=== PATIENT | male | born 1995 | race Caucasian/White ===

== ENCOUNTER 2016-08-07 12:34 | Emergency (ER) | payer MEDICAID, OTHER, SELFPAY ==
[~2016-08-07] VITALS: Ht 182.9 cm; Wt 99.8 kg
[2016-08-07] MEDS ORDERED: ONDANSETRON 4MG/2ML VIAL (J2405) IV ONE ×2 (13:15→13:30)
[2016-08-07] MEDS ORDERED: NS 1,000 ML IV ONE (13:15)
[2016-08-07] MEDS ORDERED: MECLIZINE 25 MG TABLET PO ONE (13:30)
[2016-08-07 13:45] LABS: BASO % 0.6 % (0.0-1.0); EOS % 0.6 % (0.0-3.0); LARGE UNSTAINED CELL # 0.2 K/mm3 (0.0-0.4); LYMPH # 2.1 K/mm3 (1.5-6.5); LYMPH % 22.6 % (24.0-44.0); MEAN CORPUSCULAR HEMOGLOBIN 30.4 pg (27.0-33.0); MEAN CORPUSCULAR HGB CONC 34.6 g/dl (32.0-36.5); MEAN CORPUSCULAR VOLUME 87.9 fl (80.0-96.0); MONO # 0.3 K/mm3 (0.0-0.8); MONO % 3.3 % (0.0-5.0); NEUTROPHILS % 70.9 % (36.0-66.0); PLATELET COUNT, AUTOMATED 263 k/mm3 (150-450); RED CELL DISTRIBUTION WIDTH 12.9 % (11.5-14.5); WHITE BLOOD COUNT 8.4 K/mm3 (4.0-10.0)
[2016-08-07 13:46] LABS: ALBUMIN 4.2 GM/DL (3.2-5.2); ALKALINE PHOSPHATASE 92 U/L (45-117); ALT/SGPT 80 U/L (12-78); ANION GAP 12 MEQ/L (8-16); AST/SGOT 34 U/L (15-37); BILIRUBIN,DIRECT < 0.1 MG/DL (0.0-0.2); BILIRUBIN,TOTAL 0.5 MG/DL (0.2-1.0); BLOOD UREA NITROGEN 10 MG/DL (7-18); CALCIUM LEVEL 8.9 MG/DL (8.5-10.1); CARBON DIOXIDE LEVEL 22 MEQ/L (21-32); CHLORIDE LEVEL 107 MEQ/L (98-107); GLOMERULAR FILTRATION RATE > 60.0 (>60); GLUCOSE, FASTING 182 MG/DL (70-105); POTASSIUM SERUM 3.2 MEQ/L (3.5-5.1); SODIUM LEVEL 141 MEQ/L (136-145); TOTAL PROTEIN 7.7 GM/DL (6.4-8.2)
--- NOTE | 2016-08-07 14:01 | REP ---
CT Head without contrast HISTORY: Vertigo COMPARISON: None There is no intraparenchymal hemorrhage, acute infarct, mass or midline shift. The ventricular system is normal in appearance. There is no extra cerebral collection. There is no fracture. The visualized sinuses are clear. IMPRESSION: There is no intracranial lesion. Signed by Pino Mckeon MD 08/07/2016 01:53 P
[2016-08-07 15:36] LABS: METHADONE URINE NEGATIVE (NEGATIVE)
[2016-08-07] MEDS ORDERED: MECL-86 PO (15:42)
[2016-08-07] MEDS ORDERED: ZOFR4TAB3 PO (15:42)
[2016-08-07 15:46] VITALS: BP 123/74
== END 2016-08-07 16:08 | disposition home or self-care (01) ==
LOC: M ED 14:03
DX: H81.13 Benign paroxysmal vertigo, bilateral (principal); H83.03 Labyrinthitis, bilateral; Z79.899 Other long term (current) drug therapy; Z91.012 Allergy to eggs; F17.210 Nicotine dependence, cigarettes, uncomplicated

== ENCOUNTER → 2018-05-30 | Outpatient (REF) | payer OTHER ==
[~2018-05-30] MED LIST: MECL-86 PO; ZOFR4TAB14 PO
[2018-05-30 14:28] LABS: INFLUENZA A AMPLIFICATION NEGATIVE (NEGATIVE); INFLUENZA B AMPLIFICATION NEGATIVE (NEGATIVE)
== END ==
LOC: M LAB REF 13:30
PROVIDERS: ATTEND Physician Assistant
DX: J11.1 Influenza due to unidentified influenza virus with other respiratory manifestations (principal); J02.9 Acute pharyngitis, unspecified

== ENCOUNTER 2018-06-24 01:16 | Emergency (ER) | payer OTHER ==
[~2018-06-24] VITALS: Ht 177.8 cm; Wt 86.4 kg
[2018-06-24 02:58] LABS: HEMATOCRIT 44.8 % (42.0-52.0); HEMOGLOBIN 16.1 g/dl (13.5-17.5); MEAN CORPUSCULAR HEMOGLOBIN 31.3 pg (27.0-33.0); MEAN CORPUSCULAR HGB CONC 35.9 g/dl (32.0-36.5); MEAN CORPUSCULAR VOLUME 87.2 fl (80.0-96.0); PLATELET COUNT, AUTOMATED 236 10^3/uL (150-450); RED BLOOD COUNT 5.14 10^6/uL (4.30-6.10); WHITE BLOOD COUNT 5.6 10^3/uL (4.0-10.0)
[2018-06-24 03:19] LABS: ACETAMINOPHEN LEVEL < 2.0 UG/ML (10.0-30.0); ALBUMIN 4.4 GM/DL (3.2-5.2); ALT/SGPT 52 U/L (12-78); BILIRUBIN,DIRECT 0.2 MG/DL (0.0-0.2); BILIRUBIN,TOTAL 1.2 MG/DL (0.2-1.0); BLOOD UREA NITROGEN 12 MG/DL (7-18); CALCIUM LEVEL 8.9 MG/DL (8.5-10.1); CARBON DIOXIDE LEVEL 26 MEQ/L (21-32); CHLORIDE LEVEL 108 MEQ/L (98-107); CREATININE FOR GFR 0.86 MG/DL (0.70-1.30); ETHYL ALCOHOL (ETHANOL) < 0.003 % (0.000-0.010); GLOMERULAR FILTRATION RATE > 60.0 (>60); GLUCOSE, FASTING 81 MG/DL (70-100); SALICYLATE LEVEL < 1.7 MG/DL (5.0-30.0); SODIUM LEVEL 140 MEQ/L (136-145); THYROID STIMULATING HORMONE 0.453 uIU/ML (0.358-3.740); TOTAL PROTEIN 7.6 GM/DL (6.4-8.2)
[2018-06-24] MEDS ORDERED: LORazepam 1 MG TAB PO ONE (04:15)
[2018-06-24 04:47] VITALS: BP 123/70
== END 2018-06-24 04:49 | disposition home or self-care (01) ==
LOC: M ED 01:16
DX: F32.9 Major depressive disorder, single episode, unspecified (principal); Z91.5 Personal history of self-harm; F17.290 Nicotine dependence, other tobacco product, uncomplicated; Z91.012 Allergy to eggs
CPT/HCPCS: 80048; 80076; 84443; 85027; 99284; G0480

== ENCOUNTER 2018-07-06 20:00 | Emergency (ER) | payer MEDICAID, OTHER ==
[~2018-07-06] VITALS: Ht 182.9 cm; Wt 90.9 kg
[2018-07-06] MEDS ORDERED: METOCLOPRAMIDE 10 MG TAB PO ONE (20:30)
[2018-07-06] MEDS ORDERED: diphenhydrAMINE 50 MG CAP PO ONE (20:30)
[2018-07-06] MEDS: KETOROLAC 30 MG/ML VIAL (J1885) IM ONE ×2 (20:41→20:43)
[2018-07-06] MEDS ORDERED: ALBUTEROL SULFATE 2.5 MG/0.5 ML INH NEB SOLN NEB ONE (20:45)
[2018-07-06] MEDS ORDERED: IBUPROFEN 800 MG TAB PO ONE (21:00)
[2018-07-06] MEDS ORDERED: PROAAER10 INH (21:35)
[2018-07-06 21:49] VITALS: BP 109/73
== END 2018-07-06 21:55 | disposition home or self-care (01) ==
LOC: M ED 20:00
DX: G44.209 Tension-type headache, unspecified, not intractable (principal); F90.9 Attention-deficit hyperactivity disorder, unspecified type; Z77.098 Contact with and (suspected) exposure to other hazardous, chiefly nonmedicinal, chemicals; Z91.012 Allergy to eggs

== ENCOUNTER → 2018-07-18 | Outpatient (REF) | payer OTHER, MEDICAID ==
[~2018-07-18] MED LIST changes: +PROAAER10 INH
[2018-07-18 16:56] LABS: INFLUENZA A AMPLIFICATION NEGATIVE (NEGATIVE); INFLUENZA B AMPLIFICATION NEGATIVE (NEGATIVE)
== END ==
LOC: M LAB REF 14:38
PROVIDERS: ATTEND Physician Assistant
DX: J11.1 Influenza due to unidentified influenza virus with other respiratory manifestations (principal)

== ENCOUNTER 2018-07-29 01:32 | Emergency (ER) | payer MEDICAID, OTHER ==
[~2018-07-29] VITALS: Ht 182.9 cm; Wt 89.5 kg
[2018-07-29 01:33] VITALS: BP 130/96
== END 2018-07-29 04:17 | disposition left against medical advice (07) ==
LOC: M ED 01:32 → EDBD 01:32 → M ED 04:17
DX: Z53.21 Procedure and treatment not carried out due to patient leaving prior to being seen by health care provider (principal)

== ENCOUNTER 2018-08-29 11:03 | Emergency (ER) | payer OTHER ==
[~2018-08-29] VITALS: Ht 182.9 cm; Wt 90.0 kg
[2018-08-29] MEDS ORDERED: NS 1,000 ML IV ONE (11:30)
[2018-08-29] MEDS ORDERED: METOCLOPRAMIDE INJ 10MG/2ML VIAL (J2765) IV ONE (11:30)
[2018-08-29] MEDS ORDERED: KETOROLAC 30 MG/ML VIAL (J1885) IV ONE (11:30)
[2018-08-29 11:36] LABS: BASO % 0.6 % (0.0-1.0); EOS # 0.2 10^3/uL (0.0-0.50); EOS % 3.7 % (0.0-3.0); HEMATOCRIT 43.7 % (42.0-52.0); HEMOGLOBIN 15.9 g/dl (13.5-17.5); LYMPH % 31.6 % (24.0-44.0); MEAN CORPUSCULAR HEMOGLOBIN 31.9 pg (27.0-33.0); MEAN CORPUSCULAR HGB CONC 36.4 g/dl (32.0-36.5); MEAN CORPUSCULAR VOLUME 87.6 fl (80.0-96.0); MONO # 0.4 10^3/uL (0.0-0.8); MONO % 6.3 % (0.0-5.0); NEUTROPHILS # 3.5 10^3/uL (1.8-7.7); NEUTROPHILS % 57.5 % (36.0-66.0); PLATELET COUNT, AUTOMATED 216 10^3/uL (150-450); RED BLOOD COUNT 4.99 10^6/uL (4.30-6.10); WHITE BLOOD COUNT 6.2 10^3/uL (4.0-10.0)
[2018-08-29] MEDS ORDERED: KETO10TAB PO (12:06)
[2018-08-29] MEDS ORDERED: REGL10TA6 PO (12:07)
--- NOTE | 2018-08-29 12:07 | REP ---
Clinical: Right flank pain. Technique: Axial noncontrast images from the lung bases to the pubic symphysis with coronal and sagittal re-formations. Findings: Mild right-sided hydronephrosis and proximal hydroureter with subtle periureteral stranding secondary to a 1.5 mm calculus in the midureter (image 82). Remainder of the urinary tract system is unremarkable. Liver, spleen, pancreas, gallbladder, bilateral adrenal glands are normal. The enteric system is without obstruction or acute inflammatory process. Normal terminal ileum and appendix identified in the right lower quadrant. Pelvis demonstrates normal bladder and age-appropriate prostate/seminal vesicles. No ascites. No free air. No adenopathy. Musculoskeletal structures are intact. Lung bases are clear. Impression: Mild acute right-sided obstructive uropathy with a 1.5 mm calculus in the mid-right ureter. Electronically Signed by Duke Little MD 08/29/2018 11:58 A
[2018-08-29 12:10] LABS: ALBUMIN 3.8 GM/DL (3.2-5.2); ALT/SGPT 51 U/L (12-78); BILIRUBIN,DIRECT 0.1 MG/DL (0.0-0.2); BILIRUBIN,TOTAL 0.7 MG/DL (0.2-1.0); BLOOD UREA NITROGEN 16 MG/DL (7-18); CALCIUM LEVEL 8.7 MG/DL (8.5-10.1); CARBON DIOXIDE LEVEL 21 MEQ/L (21-32); CHLORIDE LEVEL 110 MEQ/L (98-107); CREATININE FOR GFR 0.78 MG/DL (0.70-1.30); GLOMERULAR FILTRATION RATE > 60.0 (>60); GLUCOSE, FASTING 135 MG/DL (70-100); LIPASE 98 U/L (73-393); POTASSIUM SERUM 3.7 MEQ/L (3.5-5.1); SODIUM LEVEL 140 MEQ/L (136-145); TOTAL PROTEIN 7.2 GM/DL (6.4-8.2)
[2018-08-29] MEDS ORDERED: CIPR-249 PO (14:30)
[2018-08-29 14:37] VITALS: BP 122/65
== END 2018-08-29 14:38 | disposition home or self-care (01) ==
LOC: M ED 11:03
DX: N20.1 Calculus of ureter (principal); R11.2 Nausea with vomiting, unspecified; Z91.012 Allergy to eggs
CPT/HCPCS: 74176; 80048; 80076; 81001; 83690; 85025; 93041; 96361; 96374; 96375; 99285; J1885; J2765

== ENCOUNTER → 2018-09-02 | Outpatient (REF) | payer OTHER ==
[~2018-09-02] MED LIST changes: +CIPR-249 PO; +KETO10TAB PO; +REGL10TA6 PO
== END ==
LOC: M WUC 12:21
PROVIDERS: ATTEND Physician Assistant
DX: M54.9 Dorsalgia, unspecified (principal)

== ENCOUNTER 2018-09-19 22:46 | Emergency (ER) | payer OTHER ==
[~2018-09-19] VITALS: Ht 180.3 cm; Wt 80.9 kg
[2018-09-20 00:22] VITALS: BP 124/88
[2018-09-21] MEDS ORDERED: FLOM0.4C39 PO (16:42)
== END 2018-09-20 00:34 | disposition home or self-care (01) ==
LOC: M ED 22:46
DX: F41.8 Other specified anxiety disorders (principal); F43.10 Post-traumatic stress disorder, unspecified; Z79.899 Other long term (current) drug therapy; Z91.012 Allergy to eggs; F17.210 Nicotine dependence, cigarettes, uncomplicated

== ENCOUNTER 2018-09-21 12:40 | Inpatient (IN) | payer MEDICAID, OTHER ==
[~2018-09-21] VITALS: Ht 180.3 cm; Wt 88.6 kg
[2018-09-21 13:32] LABS: HEMATOCRIT 45.8 % (42.0-52.0); HEMOGLOBIN 16.6 g/dl (13.5-17.5); MEAN CORPUSCULAR HEMOGLOBIN 31.6 pg (27.0-33.0); MEAN CORPUSCULAR HGB CONC 36.2 g/dl (32.0-36.5); MEAN CORPUSCULAR VOLUME 87.2 fl (80.0-96.0); PLATELET COUNT, AUTOMATED 228 10^3/uL (150-450); RED BLOOD COUNT 5.25 10^6/uL (4.30-6.10); WHITE BLOOD COUNT 7.9 10^3/uL (4.0-10.0)
[2018-09-21 14:20] LABS: ACETAMINOPHEN LEVEL < 2.0 UG/ML (10.0-30.0); ALBUMIN 4.3 GM/DL (3.2-5.2); ALT/SGPT 57 U/L (12-78); BILIRUBIN,DIRECT 0.2 MG/DL (0.0-0.2); BILIRUBIN,TOTAL 0.9 MG/DL (0.2-1.0); BLOOD UREA NITROGEN 11 MG/DL (7-18); CALCIUM LEVEL 9.1 MG/DL (8.5-10.1); CARBON DIOXIDE LEVEL 25 MEQ/L (21-32); CHLORIDE LEVEL 108 MEQ/L (98-107); CREATININE FOR GFR 0.75 MG/DL (0.70-1.30); GLOMERULAR FILTRATION RATE > 60.0 (>60); GLUCOSE, FASTING 96 MG/DL (70-100); POTASSIUM SERUM 4.3 MEQ/L (3.5-5.1); SALICYLATE LEVEL < 1.7 MG/DL (5.0-30.0); SODIUM LEVEL 139 MEQ/L (136-145); TOTAL PROTEIN 7.8 GM/DL (6.4-8.2)
[2018-09-21 14:24] LABS: ETHYL ALCOHOL (ETHANOL) < 0.003 % (0.000-0.010)
[2018-09-21 14:50] LABS: AMPHETAMINES LEVEL URINE NEGATIVE (NEGATIVE); BARBITURATES URINE NEGATIVE (NEGATIVE); BENZODIAZEPINES URINE NEGATIVE (NEGATIVE); CANNABINOIDS URINE NEGATIVE (NEGATIVE); COCAINE METABOLITE URINE NEGATIVE (NEGATIVE); METHADONE URINE NEGATIVE (NEGATIVE); OPIATES URINE NEGATIVE (NEGATIVE); PHENCYCLIDINE URINE NEGATIVE (NEGATIVE)
[2018-09-21] MEDS ORDERED: LORazepam 1 MG TAB PO ONE (15:15)
[2018-09-21] MEDS ORDERED: NICOTINE 21MG/24HR 1 EA TRANSDERMAL TD ONE (15:30)
[2018-09-21] MEDS ORDERED: MOM 30ML SUSPENSION UDC PO PRN (16:00)
[2018-09-21] MEDS ORDERED: ACETAMINOPHEN TAB 650MG DOSE (2X325MG) PO PRN (16:00)
[2018-09-21] MEDS ORDERED: MAALOX 30 ML SUSP *UDC PO PRN (16:00)
[2018-09-21] MEDS ORDERED: FLOM0.4C39 PO (16:42)
[2018-09-21 17:56] VITALS: BP 142/94
[2018-09-21] MEDS: NICOTINE 21MG/24HR 1 EA TRANSDERMAL TD PRN (20:53)
[2018-09-22 06:25] VITALS: BP 127/70
[2018-09-22] MEDS ORDERED: NICOTINE 21MG/24HR 1 EA TRANSDERMAL TD SCH (09:00)
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
[2018-09-22] MEDS: NICOTINE 21MG/24HR 1 EA TRANSDERMAL TD PRN (09:42)
--- NOTE | 2018-09-22 10:24 | MHIPNPDOC ---
[facility] Progress Note Progress Note DATE OF SERVICE: 09/22/18 HISTORY: Further information noted today after our staff spoke with parents. Patient patient is not living at his brother's house with the at a friend's house. He has history of treatment for attention deficit disorder, which was stopped in high school. Patient does not have a plates in his head. He never worked for a [employer] never worked for the [employer]. Father claims he "snapped in high school and began telling outrageous stories. 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 He never got college diplomas. He stated he. He stated he had a brother that suicided in front of him, but this is also not true. The father has history of cancer, but patient reported he was dying, which is not true NEW TEST RESULTS: . CURRENT MEDICATIONS: See below. MENTAL STATUS EXAMINATION: Patient is a 23-year old male, who is telling stories that were then checked and not true. Speech: Is . Language skills are . Thought processes including: . Thought content: . Abstract reasoning, and computation: . Description of associations: . Description of abnormal or psychotic thoughts: . Judgment: . Insight: [very limited, good, fair. poor]. Orientation: . Recent and remote memory: . Attention span and concentration: . Language: . Fund of knowledge: . Mood: . Affect: . DIAGNOSES: 1. . 2. . 3. . ASSESSMENT: MANAGEMENT PLAN: . TIME SPENT: minutes. Vital Signs Vital Signs Date Time Temp Pulse Resp B/P (MAP) Pulse Ox O2 Delivery O2 Flow Rate FiO2 09/22/18 06:25 97.7 82 18 127/70 (89) 09/21/18 17:17 97 Room Air Laboratory Data 24H Labs Laboratory Tests 2 09/21/18 12:59: Nucleated Red Blood Cells % (auto) 0.0, Anion Gap 6L, Glomerular Filtration Rate > 60.0, Calcium Level 9.1, Aspartate Amino Transf (AST/SGOT) 23, Alanine Aminotransferase (ALT/SGPT) 57, Alkaline Phosphatase 79, Total Bilirubin 0.9, Direct Bilirubin 0.2, Total Protein 7.8, Albumin 4.3, Albumin/Globulin Ratio 1.23, Thyroid Stimulating Hormone (TSH) 1.030, Salicylates Level < 1.7L, Acetaminophen Level < 2.0L, Ethyl Alcohol Level < 0.003 09/21/18 13:04: Urine Amphetamines Screen NEGATIVE, Urine Benzodiazepines Screen NEGATIVE, Urine Opiates Screen NEGATIVE, Urine Methadone Screen NEGATIVE, Urine Barbiturates Screen NEGATIVE, Urine Phencyclidine Screen NEGATIVE, Urine Cocaine Metabolite Screen NEGATIVE, Urine Cannabinoids Screen NEGATIVE CBC/BMP Laboratory Tests 09/21/18 12:59 Red Blood Count 5.25, Mean Corpuscular Volume 87.2, Mean Corpuscular Hemoglobin 31.6, Mean Corpuscular Hemoglobin Concent 36.2, Red Cell Distribution Width 11.6 Current Medications Current Medications Acetaminophen (Tylenol Tab) 650 mg Q6HP PRN PO HEADACHE or DISCOMFORT; Start 09/21/18 at 16:00 Al Hydrox/Mg Hydrox/Simethicone (Mylanta) 30 ml Q4HP PRN PO HEARTBURN/INDIGEST ION; Start 09/21/18 at 16:00 Home Med (Med Rec Complete!) ASDIRECTED XX ; Start 09/21/18 at 16:45; Stop 09/21/18 at 16:45; Status DC Magnesium Hydroxide (Milk Of Magnesia) 30 ml DAILYPRN PRN PO CONSTIPATION; Start 09/21/18 at 16:00 Nicotine (Nicoderm Cq 21mg) 1 patch DAILY TD ; Start 09/22/18 at 09:00; Stop 09/22/18 at 09:00; Status DC Nicotine (Nicoderm Cq 21mg) 1 patch DAILYPRN PRN TD NICOTINE WITHDRAWAL Last administered on 09/22/18at 09:42; Start 09/21/18 at 20:45 Trazodone HCl (Desyrel) 50 mg QHSP PRN PO INSOMNIA; Start 09/21/18 at 16:00 Allergies Coded Allergies: egg (Unverified Allergy, Unknown, 07/06/18) SUMMER LOUIS MD Sep 22, 2018 10:24
--- NOTE | 2018-09-22 11:27 | HPEPDOC ---
General Date of Admission Sep 21, 2018 at 15:49 Date of Service: Sep 22, 2018 Attending Physician: SONIA GIBSON MD Chief Complaint The patient is a 23-year-old male admitted with a reason for visit of Unspecified Depressive Disorder. History of Present Illness Patient is a 23-year-old male, admitted on account of acute psychiatric disorder. Patient denies any past medical history. 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 He denied any physical symptoms. On assessment. Denies abdominal pain, chest pain, shortness of breath, nausea, weakness, chills, fever. Home Medications Scheduled Tamsulosin HCl (Flomax) 0.4 Mg Capsule, 0.4 MG PO DAILY, (Reported) Allergies Coded Allergies: egg (Unverified Allergy, Unknown, 07/06/18) Past Medical History Medical History Denies Surgical History Patient reports left femoral surgery and titanium skull placement. Discussed with parent patient's father states patient has no surgical history. Family History Father: Skin cancer Social History * Smoker: greater than 1 pack/day Alcohol: Denies Drugs: denies A-FIB/CHADSVASC A-FIB History Current/History of A-Fib/PAF?: No Current PO Anticoag Therapy: No Review of Systems Other systems A 10 point pertinent review of systems was completed, negative except as stated in the history of presenting illness. Physical Examination Other physical findings GENERAL: NAD SKIN : Warm, dry intact HEENT: Atraumatic, normocephalic, PERRL, moist mucous membrane CARDIOVASCULAR: Regular rate and rhythm, S1S2, no JVD, no edema, distal pulses + and palpable RESP: CTAB, no accessory muscle use noted ABDOMEN: BS+ non distended non tender MS: no joint deformities NEURO: Alert and oriented x 3, CN2-12 grossly intact PSYCH: no anxiety or agitation, appropriate mood and affect. Vital Signs Vital Signs Date Time Temp Pulse Resp B/P (MAP) Pulse Ox O2 Delivery O2 Flow Rate FiO2 09/22/18 06:25 97.7 82 18 127/70 (89) 09/21/18 17:17 97 Room Air Laboratory Data Labs 24H Laboratory Tests 2 09/21/18 12:59: Nucleated Red Blood Cells % (auto) 0.0, Anion Gap 6L, Glomerular Filtration Rate > 60.0, Calcium Level 9.1, Aspartate Amino Transf (AST/SGOT) 23, Alanine Aminotransferase (ALT/SGPT) 57, Alkaline Phosphatase 79, Total Bilirubin 0.9, Direct Bilirubin 0.2, Total Protein 7.8, Albumin 4.3, Albumin/Globulin Ratio 1.2 3, Thyroid Stimulating Hormone (TSH) 1.030, Salicylates Level < 1.7L, Acetaminophen Level < 2.0L, Ethyl Alcohol Level < 0.003 09/21/18 13:04: Urine Amphetamines Screen NEGATIVE, Urine Benzodiazepines Screen NEGATIVE, Urine Opiates Screen NEGATIVE, Urine Methadone Screen NEGATIVE, Urine Barbiturates Screen NEGATIVE, Urine Phencyclidine Screen NEGATIVE, Urine Cocaine Metabolite Screen NEGATIVE, Urine Cannabinoids Screen NEGATIVE CBC/BMP Laboratory Tests 09/21/18 12:59 Red Blood Count 5.25, Mean Corpuscular Volume 87.2, Mean Corpuscular Hemoglobin 31.6, Mean Corpuscular Hemoglobin Concent 36.2, Red Cell Distribution Width 11.6 Assessment/Plan Acute Psychotic Episode Nicotine dependence Plan Management by primary team. At this time patient has no medical underlying comorbidities requiring active follow-up by medical team Reconsult medical team as needed. Plan / VTE VTE Prophylaxis Ordered?: CANDI Todd Sep 22, 2018 11:27
[2018-09-22 18:00] VITALS: BP 131/84
--- NOTE | 2018-09-22 18:48 | ECGEPIP ---
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
[2018-09-22] MEDS: traZODone 50 MG TAB PO PRN (22:53)
[2018-09-23 06:11] VITALS: BP 133/58
[2018-09-23] MEDS: NICOTINE 21MG/24HR 1 EA TRANSDERMAL TD PRN (07:57)
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
[2018-09-23] MEDS ORDERED: FLUoxetine 10 MG CAP PO ONE (12:00)
[2018-09-23] MEDS: hydrOXYzine 25 MG TAB PO PRN (12:09)
[2018-09-23 18:15] VITALS: BP 133/84
[2018-09-23] MEDS: traZODone 50 MG TAB PO PRN (23:20)
[2018-09-24 06:33] VITALS: BP 107/68
[2018-09-24] MEDS: NICOTINE 21MG/24HR 1 EA TRANSDERMAL TD PRN (08:33)
[2018-09-24] MEDS: FLUoxetine 10 MG CAP PO SCH ×2 (08:34→10:25)
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
[2018-09-24] MEDS: hydrOXYzine 25 MG TAB PO PRN (10:27)
[2018-09-24] MEDS ORDERED: HALOPERIDOL 10 MG TAB PO PRN (11:15)
[2018-09-24 17:52] VITALS: BP 126/76
[2018-09-24 18:00] VITALS: BP 126/76
[2018-09-25 06:43] VITALS: BP 130/64
[2018-09-25] MEDS: FLUoxetine 10 MG CAP PO SCH (08:30)
[2018-09-25] MEDS: hydrOXYzine 25 MG TAB PO PRN (08:30)
[2018-09-25] MEDS ORDERED: HYDR-3363 PO (08:44)
[2018-09-25] MEDS ORDERED: FLUO10CA8 PO (08:44)
[2018-09-25] MEDS ORDERED: TRAZ-252 PO (08:44)
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
== END 2018-09-25 10:40 | disposition home or self-care (01) | DRG 753 ==
LOC: M ED 12:40 → M ED INP 15:49 → M PSY 17:44
PROVIDERS: ADMIT Psychiatry & Neurology Child & Adolescent Psychiatry; ATTEND Psychiatry & Neurology Psychiatry
DX: F39 Unspecified mood [affective] disorder (principal); F44.81 Dissociative identity disorder; F60.9 Personality disorder, unspecified; F17.200 Nicotine dependence, unspecified, uncomplicated; Z79.899 Other long term (current) drug therapy; Z91.012 Allergy to eggs

== ENCOUNTER → 2018-11-15 | Outpatient (CLI) | payer OTHER ==
[~2018-11-15] MED LIST changes: +FLOM0.4C39 PO; +FLUO10CA15 PO; +HYDR-3363 PO; +TRAZ-252 PO
--- NOTE | 2018-11-15 14:22 | REP ---
BILATERAL WRIST, EIGHT VIEWS: HISTORY: Left wrist pain. RIGHT WRIST: There is no acute fracture or dislocation. The joint spaces are normal in appearance. IMPRESSION: There is no acute fracture or dislocation. LEFT WRIST: There is no acute fracture or dislocation. The joint spaces are normal in appearance. IMPRESSION: There is no acute fracture or dislocation. Electronically Signed by Pino Mckeon MD 11/15/2018 02:42 P
== END ==
LOC: M LRY 11:47
PROVIDERS: ATTEND Physician Assistant
DX: M25.532 Pain in left wrist (principal)

== ENCOUNTER → 2018-11-22 | Outpatient (REF) | payer OTHER ==
[~2018-11-22] MED LIST changes: -FLUO10CA15 PO; +FLUO10CA8 PO
[2018-11-22 17:44] LABS: ALBUMIN 4.1 GM/DL (3.2-5.2); ALT/SGPT 57 U/L (12-78); BILIRUBIN,TOTAL 0.7 MG/DL (0.2-1.0); BLOOD UREA NITROGEN 10 MG/DL (7-18); CARBON DIOXIDE LEVEL 25 MEQ/L (21-32); CHLORIDE LEVEL 108 MEQ/L (98-107); GLOMERULAR FILTRATION RATE > 60.0 (>60); GLUCOSE, FASTING 90 MG/DL (70-100); LITHIUM LEVEL < 0.20 MEQ/L (0.60-1.20); POTASSIUM SERUM 3.7 MEQ/L (3.5-5.1); SODIUM LEVEL 141 MEQ/L (136-145); TOTAL PROTEIN 7.2 GM/DL (6.4-8.2)
[2018-11-26 00:06] LABS: Lyme Disease IgG/IgM Antibodie <0.91 ISR (0.00-0.90); Lyme Disease IgM Ab Quantitati <0.80 index (0.00-0.79)
== END ==
LOC: M SFHCLERA 14:40
PROVIDERS: ATTEND Nurse Practitioner Family
DX: M25.532 Pain in left wrist (principal)

== ENCOUNTER 2022-11-26 12:55 | Emergency (ER) | payer OTHER ==
[~2022-11-26] VITALS: Ht 180.3 cm; Wt 101.2 kg
[~2022-11-26 12:55] MED LIST changes: +FLUO10CA18 PO; -FLUO10CA8 PO
[2022-11-26] MEDS ORDERED: NS 1,000 ML IV ONE (13:25)
[2022-11-26] MEDS ORDERED: KETOROLAC 30 MG/ML 1ML VIAL IV ONE (13:25)
[2022-11-26 13:56] LABS: BASO # 0.1 10^3/uL (0.0-0.2); BASO % 0.4 % (0.0-1.0); EOS % 0.2 % (0.0-3.0); HEMOGLOBIN 15.4 g/dl (13.5-17.5); LYMPH # 0.9 10^3/uL (1.5-5.0); LYMPH % 7.4 % (24.0-44.0); MEAN CORPUSCULAR HEMOGLOBIN 31.5 pg (27.0-33.0); MEAN CORPUSCULAR HGB CONC 35.8 g/dl (32.0-36.5); MEAN CORPUSCULAR VOLUME 87.9 fl (80.0-96.0); MONO # 0.6 10^3/uL (0.0-0.8); MONO % 4.8 % (2.0-8.0); NEUTROPHILS # 10.4 10^3/uL (1.5-8.5); NEUTROPHILS % 86.8 % (36.0-66.0); PLATELET COUNT, AUTOMATED 212 10^3/uL (150-450); RED BLOOD COUNT 4.89 10^6/uL (4.30-6.10); WHITE BLOOD COUNT 11.9 10^3/uL (4.0-10.0)
[2022-11-26 14:17] LABS: LIPASE 31 U/L (12-53)
[2022-11-26 14:19] LABS: ALBUMIN 3.6 G/DL (3.2-5.2); ALKALINE PHOSPHATASE 84 U/L (46-116); ALT/SGPT 46 U/L (7.0-40); AST/SGOT 19 U/L (<34); BILIRUBIN,DIRECT 0.2 MG/DL (<0.4); BILIRUBIN,TOTAL 0.6 MG/DL (0.3-1.2); BLOOD UREA NITROGEN 11 MG/DL (9-23); CALCIUM LEVEL 8.8 MG/DL (8.5-10.1); CARBON DIOXIDE LEVEL 24 MMOL/L (20-31); CHLORIDE LEVEL 109 MMOL/L (98-107); CREATININE FOR GFR 0.94 MG/DL (0.70-1.30); GLOMERULAR FILTRATION RATE > 60.0 (>60); GLUCOSE, FASTING 103 MG/DL (60-100); POTASSIUM SERUM 4.6 MMOL/L (3.5-5.1); SODIUM LEVEL 142 MMOL/L (136-145); TOTAL PROTEIN 6.4 G/DL (5.7-8.2)
[2022-11-26] MEDS ORDERED: FLOM0.4C39 PO (15:08)
[2022-11-26 15:38] VITALS: BP 125/64; TEMP 98; O2SAT 98
== END 2022-11-26 15:51 | disposition home or self-care (01) ==
LOC: EDBD 12:55 → M ED 12:55
DX: N21.1 Calculus in urethra (principal); N23 Unspecified renal colic; K76.0 Fatty (change of) liver, not elsewhere classified; Z87.442 Personal history of urinary calculi; E61.1 Iron deficiency; F17.290 Nicotine dependence, other tobacco product, uncomplicated; Z91.012 Allergy to eggs
CPT/HCPCS: 74176; 76705; 80047; 80048; 80076; 83690; 85025; 93005; 96361; 96374; 99284; J1885

== ENCOUNTER → 2024-02-18 | Outpatient (REF) | payer OTHER ==
[~2024-02-18] MED LIST changes: +FLUO-290 PO; -FLUO10CA18 PO
[2024-02-19 14:36] LABS: BASO % 0.2 % (0.0-1.0); EOS # 0.1 10^3/uL (0.0-0.5); EOS % 0.6 % (0.0-3.0); HEMATOCRIT 46.9 % (42.0-52.0); HEMOGLOBIN 16.4 g/dl (13.5-17.5); LYMPH # 0.9 10^3/uL (1.5-5.0); LYMPH % 11.4 % (24.0-44.0); MEAN CORPUSCULAR HEMOGLOBIN 31.6 pg (27.0-33.0); MEAN CORPUSCULAR VOLUME 90.4 fl (80.0-96.0); MONO # 0.5 10^3/uL (0.0-0.8); MONO % 6.2 % (2.0-8.0); NEUTROPHILS # 6.7 10^3/uL (1.5-8.5); NEUTROPHILS % 80.3 % (36.0-66.0); PLATELET COUNT, AUTOMATED 242 10^3/uL (150-450); RED BLOOD COUNT 5.19 10^6/uL (4.30-6.10); WHITE BLOOD COUNT 8.3 10^3/uL (4.0-10.0)
[2024-02-19 14:42] LABS: ALBUMIN 3.9 G/DL (3.2-5.2); ALKALINE PHOSPHATASE 88 U/L (40-129); ALT/SGPT 42 U/L (7.0-40); AST/SGOT 13 U/L (<34); BLOOD UREA NITROGEN 11 MG/DL (9-23); CALCIUM LEVEL 9.5 MG/DL (8.5-10.1); CARBON DIOXIDE LEVEL 26 MMOL/L (20-31); CHLORIDE LEVEL 105 MMOL/L (98-107); CHOLESTEROL LEVEL 165 MG/DL (<200); CHOLESTEROL RISK RATIO 6.32 (<5); CREATININE FOR GFR 0.86 MG/DL (0.70-1.30); GLOMERULAR FILTRATION RATE > 60.0 (>60); GLUCOSE, FASTING 95 MG/DL (60-100); HDL CHOLESTEROL 26.1 MG/DL (>40); LDL CHOLESTEROL 110.3 MG/DL (<100); NON-HDL-C 138.9 MG/DL; SODIUM LEVEL 138 MMOL/L (136-145); THYROID STIMULATING HORMONE 0.357 uIU/ML (0.55-4.78); TOTAL 25(OH) VITAMIN D 6.7 NG/ML (20.0-100.0); TOTAL PROTEIN 7.5 G/DL (5.7-8.2); TRIGLYCERIDES LEVEL 143 MG/DL (<150)
[2024-02-19 15:25] LABS: HEMOGLOBIN A1c 4.8 % (4.0-6.0)
== END ==
LOC: M LAB REF 14:00
PROVIDERS: ATTEND Family Medicine Addiction Medicine
DX: E66.3 Overweight (principal); E55.9 Vitamin D deficiency, unspecified; R53.83 Other fatigue; Z11.9 Encounter for screening for infectious and parasitic diseases, unspecified

== ENCOUNTER → 2024-08-08 | Outpatient (REF) | payer OTHER ==
[~2024-08-08] MED LIST changes: -FLOM0.4C39 PO; +TAMS-18 PO
[2024-08-08 13:46] LABS: Trichomonas vaginalis (AMP) NOT DETECTED (NEGATIVE)
[2024-08-08 14:10] LABS: GC DNA AMPLIFICATION NEGATIVE (NEGATIVE)
== END ==
LOC: M LAB REF 12:06
PROVIDERS: ATTEND Physician Assistant
DX: Z20.2 Contact with and (suspected) exposure to infections with a predominantly sexual mode of transmission (principal)